=== PATIENT | female | born 1950 | race Caucasian/White ===

== ENCOUNTER 2024-05-02 13:10 | Emergency (ER) | payer MEDICARE, BC, SELFPAY ==
--- NOTE | 2024-05-02 14:12 | ED.GENMED ---
History of Present Illness
General
Chief Complaint: Skin Problem
Source: patient
Exam Limitations: none
Time Seen by Provider: 05/02/24 13:40
Travel History
Have you had any contact with someone who has COVID-19?: No
Do you have any symptoms of coronavirus? Fever > 100 degrees, chills, cough, shortness of breath, sore throat, loss of taste or smell, muscle aches, or headache?: No
History of Present Illness
History of Present Illness:
Patient notes redness to her right lower leg for days. No joint pains flu symptoms myalgias etc. Essentially asymptomatic. No trauma.
Past History
Past History
ED Past Medical History: Cancer, HTN and Hypercholesterolemia
ED Past Surgical History: Orthopedic and Other (Mastectomy)
Review of Systems
Review of Systems
Constitutional: Denies fever or chills
Phy Exam
Physical Exam
Physical Exam:
General: Nontoxic appearing in no distress
Skin: Warm and dry, no rash
Neuro: Alert, nontoxic, grossly nonfocal
Psychiatric: Good eye contact and appropriate
Musculoskeletal: Approximately 20 cm area of ecchymosis to the right leg. There is a tiny scab in the middle of this. There is some early central clearing. No warmth erythema or tenderness no drainage.
Course
Orders/Labs/Results
Orders:
Orders
05/02/24 14:12
Lyme Progressive Urgent
Doxycycline [Vibramycin] 100 mg PO NOW STA
Vital Signs
Initial and Last Documented VS:
Initial Vital Signs
Temp Pulse Resp Pulse Ox
98.3 F 63 18 96
05/02/24 13:12 05/02/24 13:12 05/02/24 13:12 05/02/24 13:12
Last Documented Vital Signs
Temp Pulse Resp Pulse Ox
98.3 F 63 18 96
05/02/24 13:12 05/02/24 13:12 05/02/24 13:12 05/02/24 13:12
MDM/Problems Addressed
Differential Diagnosis Includes:
Looks somewhat suspicious for ECM. However no systemic symptoms. Could be a early cellulitis or just an atypical bruise. Will cover with doxycycline and send Lyme titer and follow-up
*Critical Care Note
Total Time (30-74mins, 75-104mins- exclusive of procedures): Not Applicable
ED Attending Note
-
Portions of this chart may have been created with voice recognition software.� Occasional wrong word or��sound alike� substitutions may have occurred due to the inherent limitations of voice recognition software.
Discharge Plan
Departure
Patient Disposition: Home (Routine Discharge)
Date of Disposition: 05/02/24
Time of Disposition: 14:14
Patient with high blood pressure during this ER visit?: Yes
Discharge Problem:
Rash right leg, ECM versus cellulitis
Instructions: Skin Rash (DC), BLOOD PRESSURE
Prescriptions:
New
doxycycline hyclate 100 mg capsule
100 mg PO BID 10 Days Qty: 20 0RF
Activity Restrictions/Additional Instructions:
Lyme titer should be back in 3 to 4 days
Antibiotics as directed
if the Lyme titer is positive I would recommend antibiotics for another 10 days
Follow-up closely with your physician return with increased redness swelling fever chills or any other concerning symptoms
Interventions
Interventions:
*ED COVID-19 Vaccine History Last Done: 05/02/24 13:12
ED-Skin Assessment Last Done: 05/02/24 13:10
Discharge Date and Time
Print Language: BRITISH
[2024-05-02] MEDS: VIBRAMYCIN 100 MG PO (14:23)
== END 2024-05-02 14:48 | disposition home or self-care (01) ==
LOC: EMR 13:10
PROVIDERS: EMERGENCY PHYSICIAN Emergency Medicine; FAMILY PHYSICIAN Family Medicine
DX: R21 Rash and other nonspecific skin eruption (principal); I10 Essential (primary) hypertension; E78.00 Pure hypercholesterolemia, unspecified; Z85.3 Personal history of malignant neoplasm of breast; Z90.10 Acquired absence of unspecified breast and nipple
CPT/HCPCS: 99283